=== PATIENT | female | born 1960 | race Caucasian/White ===

== ENCOUNTER 2020-07-29 12:44 | Observation (INO) | payer MEDICARE, MEDICAID, OTHER ==
[2020-07-29 13:24] LABS: Bilirubin Negative (Negative); Blood, Urine Negative (Negative); Clarity Clear (Clear); Glucose, Urine (Dipstick) Normal (Negative); Ketone, Urine Negative (Negative); Leukocyte Negative Leu/uL (Negative); Nitrite Negative (Negative); Protein, Urine (Dipstick) 10 mg/dL (Neg-Trace); Specific Gravity, Urine 1.023 (1.002-1.036); Urobilinogen Normal mg/dL (Less than 2); pH, Urine 5.5 (5.0-9.0)
[2020-07-29 13:50] LABS: #Basophils 0.1 thou/uL (0.0-0.2); #Eosinphils 0.1 thou/uL (0.0-0.7); #Lymphocytes 2.2 thou/uL (1.20-3.40); #Monocytes 0.7 thou/uL (0.11-0.59); #Neutrophils 5.1 thou/uL (1.40-6.50); %Basophils 1.2 % (0.0-1.0); %Eosinophils 1.6 % (0.0-10.0); %Lymphocytes 26.6 % (21.0-51.0); %Monocytes 8.2 % (0.0-10.0); %Neutrophils 62.5 % (42.0-75.0); Hemoglobin 13.3 g/dL (12.0-16.0); Mean Corpuscular HGB CONC 32.9 g/dL (32.0-36.0); Mean Corpuscular Hemoglobin 30.2 pg (27.0-31.0); Mean Corpuscular Volume 91.7 fL (78.0-98.0); Mean Platelet Volume 10.5 fL (7.4-10.4); Platelet Count 185 thou/uL (130-400); RBC Distribution Width 13.2 % (11.5-14.5); Red Blood Cell (RBC) Count 4.39 mill/uL (4.20-5.40); White Blood Cell (WBC) Count 8.1 thou/uL (4.8-10.8)
--- NOTE | 2020-07-29 13:52 | CT ---
Exam: Head CT without contrast HISTORY: Altered mental status. COMPARISON: none FINDINGS: Hemorrhage: No intraparenchymal hemorrhage or extra-axial hematoma. Brain parenchyma: Cortical morgan-white matter differentiation is preserved. No mass effect or midline shift. Basilar cisterns are patent.Chronic small vessel ischemic changes white matter. Remote lacunar infarcts involving the left and right caudate nucleus, left and right thalami. There is encephalomalacia and gliosis involving the left cerebellum. Ventricular system: Ventricles and sulci are patent and symmetric. Calvarium: Intact. Sinuses and mastoid air cells: Adequate aeration. Remote bilateral lamina propecia fractures. IMPRESSION: No acute intracranial process.
[2020-07-29 14:07] LABS: ALT (SGPT) 12 U/L (8-55); AST (SGOT) 24 U/L (5-34); Albumin 3.7 g/dL (3.4-4.8); Alkaline Phosphatase 52 U/L (40-110); Anion Gap 14 mmol/L (10-20); BUN (Urea Nitrogen) 22 mg/dL (9.8-20.1); Bilirubin, Total 0.4 mg/dL (0.2-1.2); Calc. Creatinine Clearance 0 mL/min (70-130); Calcium 8.9 mg/dL (7.8-10.44); Carbon Dioxide 25 mmol/L (23-31); Chloride 104 mmol/L (98-107); Estimated GFR-MDRD 64; Globulin 2.1 g/dL (2.4-3.5); Glucose 78 mg/dL (80-115); Potassium 4.4 mmol/L (3.5-5.1); Protein, Total 5.8 g/dL (6.0-8.3); Sodium 139 mmol/L (136-145)
--- NOTE | 2020-07-29 14:11 | RAD ---
XR Chest 1 View Portable HISTORY: Generalized weakness and headache. Altered mental status COMPARISON: None FINDINGS: The heart size is normal. The lungs are well expanded without focal areas of consolidation, pneumothorax or pleural effusions. There is a left-sided Port-A-Cath with tip in the projection of the SVC. IMPRESSION: No radiographic evidence of acute cardiopulmonary process.
[2020-07-29] MEDS ORDERED: Acetaminophen 325 MG TAB ONE (14:46)
--- NOTE | 2020-07-29 16:15 | PDOC.FPRHP ---
- History of Present Illness Chief Complaint: L arm numbness History of Present Illness: Patient is a 59 year old female with a history of CVA x 3, MS, Afib, and CAD who presents to the ED via [facility] with complaints of L arm numbness and tingling. The patient reports symptom was present upon waking from a nap at 2200 yesterday. Last known normal was 1600. Upon waking this am, she reports worsening of baseline expressive aphasia, vertigo, near syncope and difficulty ambulating, now all resolved. Her health nurse noted these symptoms and called EMS. [facility] was used due to long distance to hospital. The patient reports right occipital headache, blurry vision, right sided neck pain since this am that has improved. She also notes chronic bilateral hand weakness. She denies lightheadedness, dizziness, chest pain, palpitation, SOB and nausea. She says first CVA occurred in 1990. Unknown if previously worked up for clotting disorder. Reports hx CVA in maternal and paternal grandmothers. ED Course: In the ED, BP ranged 130-160 systolic. EKG showed NSR. Received acetaminophen 650mg due to headache. - Allergies/Adverse Reactions Allergies Allergy/AdvReac Type Severity Reaction Status Date / Time iodine Allergy Verified 07/29/20 18:03 Iodine and Iodide Containing Allergy Verified 07/29/20 18:03 Produc Sulfa (Sulfonamide Allergy Verified 07/30/20 06:30 Antibiotics) - History PMHx: HTN, asthma, COPD, muscular dystrophy, MS, hereditary iodiopathic neuropathy, afib, PVD, CAD, IBS, VSD s/p repair, CVA x3, Anxiety, depression, PTSD PSHx: 2 vessel cabg, VSD repair, hysterectomy, bilateral leg surgeries related to PVD, tonsillectomy FHx: Maternal and paternal grandmothers - CVA Social: . Smokes daily ranging 1-5 cigarettes. No alcohol or drug use. - Review of Systems General: reports: fatigue. denies: fever/chills Eyes: reports: vision changes (dizziness). denies: eye pain ENT: denies: nasal congestion, rhinorrhea Respiratory: denies: cough, shortness of breath Cardiovascular: denies: chest pain, palpitation, edema Gastrointestinal: denies: nausea, vomiting, diarrhea, constipation, abdominal pain Genitourinary: denies: dysuria, polyuria Skin: denies: rashes, itching Musculoskeletal: denies: pain, tenderness Neurological: reports: numbness (L arm), weakness (bilateral hands). denies: syncope, seizure Psychological: denies: anxiety, depression - Vital signs BP: [154/89] HR: [69] RR: [14] Tmax: [98] Pox: [100]% on [RA] Wt: [59kg] - Physical Exam Constitutional: NAD, awake, alert and oriented HEENT: normocephalic and atraumatic, EOMI, no scleral icterus, grossly normal vision, grossly normal hearing, MMM Neck: FROM, trachea midline Chest: no-tender to palpation, no lesions Heart: RRR, pulses present, no edema -Heart: Murmur present Lungs: no respiratory distress -Lungs: Wheezes throughout lung garcia, coarse crackles at bases Abdomen: soft, non-tender, bowel sounds present Musculoskeletal: normal structure, ROM grossly normal Neurological: CN II-XII intact -Neurological: Reports decreased sensation on left extremities. Strength: LUE 4.5/5, RUQ 5/5, LLE 5/5, RLE 5/5. Poor coordination on [id number] exam. Intermittent expressive aphasia, reportedly at baseline. Skin: no rash/lesions, no jaundice Heme/Lymphatic: no unusual bruising or bleeding Psychiatric: normal mood and affect FMR H&P: Results - Labs Result Diagrams: 07/29/20 13:38 07/29/20 13:38 Lab results: WBC 8.1 thou/uL (4.8-10.8) 07/29/20 13:38 Hgb 13.3 g/dL (12.0-16.0) 07/29/20 13:38 Hct 40.2 % (36.0-47.0) 07/29/20 13:38 MCV 91.7 fL (78.0-98.0) 07/29/20 13:38 Plt Count 185 thou/uL (130-400) 07/29/20 13:38 Neutrophils % 62.5 % (42.0-75.0) 07/29/20 13:38 Sodium 139 mmol/L (136-145) 07/29/20 13:38 Potassium 4.4 mmol/L (3.5-5.1) 07/29/20 13:38 Chloride 104 mmol/L (98-107) 07/29/20 13:38 Carbon Dioxide 25 mmol/L (23-31) 07/29/20 13:38 BUN 22 mg/dL (9.8-20.1) H 07/29/20 13:38 Creatinine 0.89 mg/dL (0.6-1.1) 07/29/20 13:38 Glucose 78 mg/dL (80-115) L 07/29/20 13:38 Calcium 8.9 mg/dL (7.8-10.44) 07/29/20 13:38 Total Bilirubin 0.4 mg/dL (0.2-1.2) 07/29/20 13:38 AST 24 U/L (5-34) 07/29/20 13:38 ALT 12 U/L (8-55) 07/29/20 13:38 Alkaline Phosphatase 52 U/L (40-110) 07/29/20 13:38 Serum Total Protein 5.8 g/dL (6.0-8.3) L 07/29/20 13:38 Albumin 3.7 g/dL (3.4-4.8) 07/29/20 13:38 Urine Ketones Negative mg/dL (Negative) 07/29/20 13:00 Urine Blood Negative (Negative) 07/29/20 13:00 Urine Nitrite Negative (Negative) 07/29/20 13:00 Ur Leukocyte Esterase Negative Robin/uL (Negative) 07/29/20 13:00 - EKG Interpretation EKG: NSR, HR 66 FMR H&P: A/P - Plan L arm numbness 2/2 TIA vs. MS flare Continued L arm numbness/tingling but improvement of expressive aphasia, headache and blurry vision since onset. Hx CVA in past. CT Head showed chronic small vessel ischemic changes and remote lacunar infarcts. -Admit to stroke unit obs -Neuro checks Q4H -Lipid panel -Bedside swallow -Continue home atorvastatin 80mg daily -ASA 325mg daily -MRI in am to further investigate HTN BP ranged 130-160s systolic. -Labetalol IV PRN, hydralazine PO PRN -Monitor Afib -EKG showed NSR -Monitor on tele -Continue home xarelto CAD s/p 2 vessel CABG VSD repair Normal EKG. Trop <0.010. CXR showed nothing acute. -Continue home xarelto -Not currently on b-yo COPD Asthma -Continue home meds Hereditary idiopathic neuropathy Could be contributing to L arm numbness/tingling. -Continue home meds Anxiety Depression PTSD -Continue home meds PVD IBS Muscular dystrophy -Aware PCP: [facility] Call Code: FULL DVT PPx: Home xarelto Social: From [place], [place]. Unknown PCP however medications prescribed by Dr. Mayuri Larios (IM), Dr. Christian Herzog () and Dr. Zahraa Garrido. Dispo: Admit to stroke unit, expected LOS < 48 hours FMR H&P: Upper Level - Plan Date/Time: 07/29/20 1612 I, Benedict Keith DO, have evaluated this patient and agree with findings/plan as outlined by internal review and audit compliance resident. Pertinent changes/additions are listed here. This is a 59 yo female with a pmh of multiple CVAs, HTN, COPD, CAD with 2 vessel CABG, IBS, atrial fibrillation who presents to the ER via [facility] with a cc of generalized weakness. Per her home anirudh nurse, her last known normal was 0 in the afternoon. She reports associated headaches, decreased sensation in her left arm, and changes in her vision. She states she has had multiple strokes in the past. She also feels her speech is different. She reports a history of bladder incontinence but denies any current symptoms. She does not describe any Lhermitte symptoms with neck movement. She I believe in general, this patient has poor health literacy. She is unsure of the PMH that has been documented in multiple locations and can not confirm these. Objective: Vitals: BP 154/89, HR 69, RR 14, Temp 98.0, SpO2 100% 2L nc, Wt 60kg General: NAD HEENT: MMM, AT/NC Cardio: RRR, no murmur Respiratory: Mild basilar crackles, good air movement Abdomen: Soft, non-tender, BS+ Neuro: CN II-XII grossly intact, Bicep/tricep strength is grossly 4/5, race board attendant strength is 4/5, right leg flexion is shaky and 4/5, left leg extension is 5/5, dorsal and plantar flexion is 5/5 bilaterally. Pt is AAOx3 with recent memory moderately intact Extremities: No edema, pulses present A/P: Acute weakness likely 2/2 stroke vs. MS flare -Admit to stroke obs -CT brain wnl, CXR wnl -Will obtain MRI brain with contrast in the AM to rule out stroke vs MS flare -Will hold off on steroids for the time being -Pending CTA head and neck -Bedside swallow study CAD -Aspirin and statin HTN -Continue home meds, PRN medication available COPD -Will monitor, does not appear to have an acute exacerbation Further management of chronic conditions per internal review and audit compliance note. Code: Full Prophylaxis: Home Xarelto Family: None at bedside Fluids: SL Diet: HH diet Disposition: DC in 1-2 days PCP: [facility] Addendum - Attending - Attending Attestation Date/Time: 07/30/20 0905 I personally evaluated the patient and discussed the management with Dr. Salas/Sagar. I agree with the History, Examination, Assessment and Plan documented above with any addition or exceptions noted below. Patient with history of CVA and MS here for concern for new CVA. Her symptoms have been ongoing over [address] negative. Will obtain MRI and further mgmt pending that result. Needs ACEi and anti-platelet therapy for her CAD.
[2020-07-29] MEDS ORDERED: Ondansetron ODT 4 MG TAB PO PRN ×2 (17:15→19:46)
[2020-07-29] MEDS ORDERED: Ondansetron PF 4 MG/2 ML Vial IVP PRN ×2 (17:15→19:46)
[2020-07-29] MEDS ORDERED: Acetaminophen 325 MG TAB PO PRN ×2 (17:15→19:46)
[2020-07-29] MEDS ORDERED: Mometasone 100 MCG/Formoterol 5 MCG 120 PUFF INHALER INH SCH (18:30)
[2020-07-29] MEDS ORDERED: Nicotine 14 MG PATCH TD SCH ×2 (18:30→20:00)
[2020-07-29] MEDS ORDERED: Labetalol HCl 100 MG/20 ML VIAL SLOW IVP PRN ×2 (18:43→19:49)
[2020-07-29] MEDS ORDERED: hydrALAZINE 25 MG TAB PO PRN ×2 (18:43→19:49)
[2020-07-29] MEDS ORDERED: Donepezil HCl 10 MG TAB PO SCH ×2 (21:00)
[2020-07-29] MEDS ORDERED: Atorvastatin Calcium 40 MG TAB PO SCH ×2 (21:00)
[2020-07-29] MEDS ORDERED: traMADol HCl 50 MG TAB PO SCH (22:45)
[2020-07-30 03:54] VITALS: BMI 23.2
[2020-07-30] MEDS ORDERED: Acetaminophen 500 MG TAB PO SCH (04:30)
[2020-07-30] MEDS ORDERED: Ketorolac Tromethamine 30 MG/ML VIAL IVP SCH ×2 (04:30→09:45)
--- NOTE | 2020-07-30 05:36 | PDOC.FM ---
- Subjective Subjective: Patient complains of continued right occipital headache, improved after receiving Toradol last pm. She reports L arm numbness that remains unchanged since onset. Speech at baseline. Denies vision changes, chest pain, SOB, nausea, abdominal pain and edema. - Objective MAR Reviewed: Yes Vital Signs & Weight: Vital Signs (12 hours) Temp Pulse Resp BP Pulse Ox 07/30/20 04:00 97.7 F 66 20 158/89 H 100 07/29/20 20:02 97.6 F 64 18 97 Weight Weight 50.485 kg Result Diagrams: 07/29/20 13:38 07/29/20 13:38 Phys Exam - Physical Examination Constitutional: NAD HEENT: moist MMs, sclera anicteric Neck: supple, full ROM Respiratory: wheezing present (Faint expiratory wheezes) Cardiovascular: RRR Murmur present Gastrointestinal: soft, positive bowel sounds Musculoskeletal: no edema, pulses present Neurological: moves all 4 limbs Decreased L extremity sensation, unchanged Strength 4/5 for LUE. RUE, RLE, LLE 5/5 Psychiatric: normal affect, A&O x 3 Skin: no rash Dx/Plan - Plan Plan: L arm numbness 2/2 CVA vs. MS flare Continued L arm numbness/tingling but improvement of expressive aphasia, headache and blurry vision since onset. Hx CVA in past. CT Head showed chronic small vessel ischemic changes and remote lacunar infarcts. -Neuro checks Q4H -Passed bedside swallow test. On diet -Continue home atorvastatin 80mg daily -ASA 325mg daily -MRI to further investigate HTN BP ranged 130-160s systolic since admission. -Labetalol IV PRN, hydralazine PO PRN -Start lisinopril 10mg PO daily Afib -EKG showed NSR -Monitor on tele -Continue home xarelto CAD s/p 2 vessel CABG VSD repair Normal EKG. Trop <0.010. CXR showed nothing acute. -Continue home xarelto -Not currently on b-yo COPD Asthma -Continue home meds Hereditary idiopathic neuropathy Could be contributing to L arm numbness/tingling. -Continue home meds Anxiety Depression PTSD -Continue home meds PVD IBS Muscular dystrophy -Aware PCP: [facility] Call Code: FULL DVT PPx: Home xarelto Social: From [place], [place]. Unknown PCP however medications prescribed by Dr. Mayuri Larios (), Dr. Christian Herzog () and Dr. Zahraa Garrido. Dispo: Home pending further medical management Addendum - Attending - Attending Attestation Date/Time: 07/30/20905 I personally evaluated the patient and discussed the management with Dr. Salas. I agree with the History, Examination, Assessment and Plan documented above with any addition or exceptions noted below.
[2020-07-30] MEDS: Mometasone 100 MCG/Formoterol 5 MCG 120 PUFF INHALER INH SCH ×2 (06:34→18:36)
[2020-07-30] MEDS ORDERED: FLU VACC QS2020-21(6MOS UP)/PF 60 MCG/0.5 ML SYRINGE IM ONE (08:00)
[2020-07-30] MEDS ORDERED: Pregabalin 75 MG CAP PO SCH ×3 (09:00)
[2020-07-30] MEDS ORDERED: rOPINIRole HCl 0.5 MG TAB PO SCH ×2 (09:00)
[2020-07-30] MEDS ORDERED: Rivaroxaban 10 MG TAB PO SCH ×2 (09:00)
[2020-07-30] MEDS ORDERED: Fenofibrate Nanocrystallized 145 MG TAB PO SCH ×2 (09:00)
[2020-07-30] MEDS ORDERED: Venlafaxine HCl XR 75 MG CAP PO SCH ×2 (09:00)
[2020-07-30] MEDS ORDERED: Aspirin 325 mg Enteric Coated Tablet PO SCH ×2 (09:00)
[2020-07-30] MEDS ORDERED: Lisinopril 10 MG TAB PO SCH (11:45)
[2020-07-30 12:09] LABS: SARS-CoV-2 MS2 Positive; SARS-CoV-2 N Gene Negative; SARS-CoV-2 S Gene Negative; SARS-CoV-2 by NAA Not Detected (NotDetected); SARS-CoV-2 orf1ab Negative
--- NOTE | 2020-07-30 15:06 | MRI ---
MRI OF BRAIN PERFORMED WITHOUT CONTRAST ENHANCEMENT: 07/30/20 HISTORY: Patient has history of CVA, expressive aphasia. COMPARISON: CT examination done yesterday. The ventricular and cisternal system shows mild atrophy. T2 and FLAIR signal change within the white matter is consistent with some chronic change. Old lacunar infarcts are seen in the right and left th dorie region. In addition, old infarct is seen in the right and left cerebella regions. On the diffus ion weighted sequence, I do not see any signs of any restricted diffusion that would suggest any type of acute infarct. No hemorrhage or mass effect. IMPRESSION: No acute intracranial abnormalities. POS: OFF
[2020-07-30 15:32] VITALS: TEMP 97.4
[2020-07-30 15:43] VITALS: BP 134/82
[2020-07-31] MEDS ORDERED: Lisinopril 10 MG TAB PO SCH (09:00)
== END 2020-07-30 20:07 | disposition home health service (06) ==
LOC: ERS 12:44 → 2SE 16:00 → ERS 18:33
PROVIDERS: ADMIT Family Medicine; ATTEND Family Medicine
DX: R20.0 Anesthesia of skin (principal); R47.01 Aphasia; R51.9 Headache, unspecified; H53.8 Other visual disturbances; R53.1 Weakness; G35 Multiple sclerosis; I48.91 Unspecified atrial fibrillation; I25.10 Atherosclerotic heart disease of native coronary artery without angina pectoris; I10 Essential (primary) hypertension; J44.9 Chronic obstructive pulmonary disease, unspecified; K58.9 Irritable bowel syndrome, unspecified; F41.9 Anxiety disorder, unspecified; F32.9 Major depressive disorder, single episode, unspecified; F43.10 Post-traumatic stress disorder, unspecified; G60.8 Other hereditary and idiopathic neuropathies; F17.210 Nicotine dependence, cigarettes, uncomplicated; G71.00 Muscular dystrophy, unspecified; Z86.73 Personal history of transient ischemic attack (TIA), and cerebral infarction without residual deficits; Z79.01 Long term (current) use of anticoagulants; Z79.82 Long term (current) use of aspirin; Z79.899 Other long term (current) drug therapy; Z88.2 Allergy status to sulfonamides; Z91.041 Radiographic dye allergy status; Z95.1 Presence of aortocoronary bypass graft; Z20.828 Contact with and (suspected) exposure to other viral communicable diseases
CPT/HCPCS: 51701; 70450; 70551; 71045; 80053; 81003; 84484; 85025; 93005; 94640; 94664; 97116; 97139 ×4; 97530 ×2; 99285; U0003; 36415; 87635; 96374; 96375; G0378; J1642; J1885